=== PATIENT | male | born 1955 | race African-American/Black ===

== ENCOUNTER 2017-10-12 09:20 | Emergency (ER) | payer OTHER ==
[2017-10-12] MEDS: ALBUTEROL SULFATE 2.5 MG/3 ML NEBU. CONT NEB (09:46)
[2017-10-12] MEDS: IPRATRPIUM/ALBUTEROL 0.5/2.5MG 3 ML NEBU. NEB (09:46)
[2017-10-12 09:50] LABS: ADD MAN DIFF? NO
[2017-10-12] MEDS: methylPREDNISolone SOD SUCC PF 125 MG/2 ML VIAL. IV (09:50)
[2017-10-12 09:56] LABS: BASO # 0.1 x10^3/uL (0.0-0.2); BASO % 1 % (0-3); EOS # 0.3 x10^3/uL (0.0-0.7); EOS % 6 % (0-3); HEMATOCRIT 37.4 % (39.0-53.0); HEMOGLOBIN 12.5 g/dL (13.0-17.5); LYMPH # 0.8 x10^3/uL (1.0-4.8); LYMPH % 14 % (24-48); MEAN CORPUSCULAR HEMOGLOBIN 31 pg (25-35); MEAN CORPUSCULAR HGB CONC 33 g/dL (31-37); MEAN CORPUSCULAR VOLUME 93 fL (79-100); MONO # 0.7 x10^3/uL (0.0-1.1); MONO % 13 % (0-9); NEUT # 3.5 x10^3uL (1.8-7.7); NEUT % 66 % (31-73); PLATELET COUNT 133 x10^3/uL (140-400); RED BLOOD COUNT 4.02 x10^6/uL (4.30-5.70); RED CELL DISTRIBUTION WIDTH 14.9 % (11.5-14.5); WHITE BLOOD COUNT 5.4 x10^3/uL (4.0-11.0)
[2017-10-12 10:03] LABS: ANION GAP 7 (6-14); BLOOD UREA NITROGEN 19 mg/dL (8-26); BUN/CREATININE RATIO 16 (6-20); CALCIUM 9.4 mg/dL (8.5-10.1); CARBON DIOXIDE 27 mmol/L (21-32); CHLORIDE 106 mmol/L (98-107); CREATININE 1.2 mg/dL (0.7-1.3); GLUCOSE 144 mg/dL (70-99); POTASSIUM 3.9 mmol/L (3.5-5.1); SODIUM 140 mmol/L (136-145)
[2017-10-12 10:06] LABS: PROTHROMBIN TIME PATIENT 13.1 SEC (11.7-14.0)
[2017-10-12 10:09] LABS: ALBUMIN/GLOBULIN RATIO 1.2 (1.0-1.7); ALK PHOS 76 U/L (46-116); ALT (SGPT) 27 U/L (16-63); AST (SGOT) 24 U/L (15-37); MAGNESIUM 1.8 mg/dL (1.8-2.4); TOTAL BILIRUBIN 0.6 mg/dL (0.2-1.0); TOTAL PROTEIN 7.4 g/dL (6.4-8.2)
[2017-10-12 10:10] LABS: TROPONINI < 0.017 ng/mL (0.000-0.055)
[2017-10-12 10:18] LABS: NT-PRO BNP 520 pg/mL (0-124); THYROID STIM HORMONE (TSH) 1.293 uIU/mL (0.358-3.74)
[2017-10-12 10:18] LABS: CKMB INDEX 1.1 % (0-4); CREATINE KINASE 285 U/L (39-308)
== END 2017-10-12 11:28 | disposition home or self-care (01) ==
LOC: ER 09:20
DX: J44.1 Chronic obstructive pulmonary disease with (acute) exacerbation (principal); I48.91 Unspecified atrial fibrillation; I11.0 Hypertensive heart disease with heart failure; I50.9 Heart failure, unspecified; E10.40 Type 1 diabetes mellitus with diabetic neuropathy, unspecified; F12.10 Cannabis abuse, uncomplicated; Z85.528 Personal history of other malignant neoplasm of kidney; Z95.0 Presence of cardiac pacemaker; Z95.5 Presence of coronary angioplasty implant and graft; Z88.8 Allergy status to other drugs, medicaments and biological substances
CPT/HCPCS: 36415; 71045; 80053; 82553; 83735; 83880; 84443; 84484; 85025; 85610; 93005; 94644; 96374; 99285-25; J2930; J7613; J7620

== ENCOUNTER 2017-10-13 22:29 | Emergency (ER) | payer OTHER ==
[2017-10-13] MEDS: cefTRIAXone IM 1 GM VIAL IM (23:45)
== END 2017-10-14 | disposition home or self-care (01) ==
LOC: ER 10-14
DX: J02.9 Acute pharyngitis, unspecified (principal); I48.91 Unspecified atrial fibrillation; I10 Essential (primary) hypertension; J44.1 Chronic obstructive pulmonary disease with (acute) exacerbation; E10.40 Type 1 diabetes mellitus with diabetic neuropathy, unspecified; F12.10 Cannabis abuse, uncomplicated; Z95.5 Presence of coronary angioplasty implant and graft; Z95.0 Presence of cardiac pacemaker; Z88.8 Allergy status to other drugs, medicaments and biological substances
CPT/HCPCS: 96372; 99283; J0696

== ENCOUNTER → 2017-10-25 | Outpatient (CLI) | payer OTHER ==
[2017-10-25 15:22] LABS: ADD MAN DIFF? NO
[2017-10-25 15:29] LABS: BASO % 0 % (0-3); EOS % 0 % (0-3); HEMATOCRIT 39.2 % (39.0-53.0); LYMPH # 0.8 x10^3/uL (1.0-4.8); LYMPH % 6 % (24-48); MEAN CORPUSCULAR HEMOGLOBIN 31 pg (25-35); MEAN CORPUSCULAR HGB CONC 33 g/dL (31-37); MEAN CORPUSCULAR VOLUME 93 fL (79-100); MONO # 0.6 x10^3/uL (0.0-1.1); MONO % 5 % (0-9); NEUT # 12.4 x10^3uL (1.8-7.7); NEUT % 89 % (31-73); PLATELET COUNT 140 x10^3/uL (140-400); RED BLOOD COUNT 4.22 x10^6/uL (4.30-5.70); RED CELL DISTRIBUTION WIDTH 15.1 % (11.5-14.5); WHITE BLOOD COUNT 13.8 x10^3/uL (4.0-11.0)
[2017-10-25 15:34] LABS: BARBITURATES NEG (NEG); BENZODIAZEPINES NEG (NEG); CANNABINOIDS POS (NEG); COCAINE NEG (NEG); METHADONE NEG (NEG); OPIATES POS (NEG); PHENCYCLIDINE NEG (NEG)
[2017-10-25 15:36] LABS: AMPHETAMINE/METHAMPHETAMINE NEG (NEG); ETHANOL, URINE NEG (NEG)
[2017-10-25 15:48] LABS: ALBUMIN 3.7 g/dL (3.4-5.0); ALBUMIN/GLOBULIN RATIO 1.2 (1.0-1.7); ALK PHOS 63 U/L (46-116); ALT (SGPT) 43 U/L (16-63); ANION GAP 11 (6-14); AST (SGOT) 21 U/L (15-37); BLOOD UREA NITROGEN 34 mg/dL (8-26); BUN/CREATININE RATIO 24 (6-20); CARBON DIOXIDE 22 mmol/L (21-32); CHLORIDE 104 mmol/L (98-107); CREATININE 1.4 mg/dL (0.7-1.3); GFR 61.9; GLUCOSE 238 mg/dL (70-99); POTASSIUM 4.5 mmol/L (3.5-5.1); SODIUM 137 mmol/L (136-145); TOTAL BILIRUBIN 0.5 mg/dL (0.2-1.0); TOTAL PROTEIN 6.8 g/dL (6.4-8.2)
[2017-10-25 15:58] LABS: THYROID STIM HORMONE (TSH) 0.312 uIU/mL (0.358-3.74)
[2017-10-25 17:36] LABS: VITAMIN-B12 665 pg/mL (247-911)
== END | disposition home or self-care (01) ==
LOC: LAB 14:29
DX: R56.9 Unspecified convulsions (principal)
CPT/HCPCS: 36415; 80053; 80307; 82607; 84443; 85025

== ENCOUNTER → 2017-11-01 | Outpatient (CLI) | payer OTHER | END | disposition home or self-care (01) | LOC: CT 09:51 | DX: S06.0X9D Concussion with loss of consciousness of unspecified duration, subsequent encounter (principal); G31.9 Degenerative disease of nervous system, unspecified; X58.XXXD Exposure to other specified factors, subsequent encounter | CPT/HCPCS: 70450 ==

== ENCOUNTER → 2017-11-01 | Outpatient (CLI) | payer MEDICAID ==
[2017-11-01 09:02] LABS: ADD MAN DIFF? NO
[2017-11-01 09:12] LABS: BASO % 1 % (0-3); EOS # 0.2 x10^3/uL (0.0-0.7); EOS % 3 % (0-3); HEMATOCRIT 38.4 % (39.0-53.0); HEMOGLOBIN 12.9 g/dL (13.0-17.5); LYMPH # 1.2 x10^3/uL (1.0-4.8); LYMPH % 21 % (24-48); MEAN CORPUSCULAR HEMOGLOBIN 31 pg (25-35); MEAN CORPUSCULAR HGB CONC 34 g/dL (31-37); MEAN CORPUSCULAR VOLUME 93 fL (79-100); MONO # 0.6 x10^3/uL (0.0-1.1); MONO % 10 % (0-9); NEUT # 3.7 x10^3uL (1.8-7.7); NEUT % 66 % (31-73); PLATELET COUNT 101 x10^3/uL (140-400); RED BLOOD COUNT 4.14 x10^6/uL (4.30-5.70); RED CELL DISTRIBUTION WIDTH 15.1 % (11.5-14.5); WHITE BLOOD COUNT 5.7 x10^3/uL (4.0-11.0)
[2017-11-01 09:24] LABS: ALBUMIN 3.5 g/dL (3.4-5.0); ALBUMIN/GLOBULIN RATIO 1.1 (1.0-1.7); ALK PHOS 62 U/L (46-116); ALT (SGPT) 52 U/L (16-63); ANION GAP 7 (6-14); AST (SGOT) 33 U/L (15-37); BLOOD UREA NITROGEN 22 mg/dL (8-26); BUN/CREATININE RATIO 18 (6-20); CARBON DIOXIDE 27 mmol/L (21-32); CHLORIDE 102 mmol/L (98-107); CHOLESTEROL 141 mg/dL (0-200); CHOLESTEROL/HDL RATIO 1.6; CREATININE 1.2 mg/dL (0.7-1.3); GLUCOSE 234 mg/dL (70-99); HDLC 89 mg/dL (40-60); LDLC 38 mg/dL (0-100); NON-HDL CHOLESTEROL 52 mg/dL (0-129); SODIUM 136 mmol/L (136-145); TOTAL BILIRUBIN 0.7 mg/dL (0.2-1.0); TOTAL PROTEIN 6.8 g/dL (6.4-8.2); TRIGLYCERIDES 71 mg/dL (0-150); VLDLC 14 mg/dL (0-40)
[2017-11-01 09:41] LABS: FREE T4 1.08 ng/dL (0.76-1.46)
[2017-11-01 09:41] LABS: THYROID STIM HORMONE (TSH) 2.414 uIU/mL (0.358-3.74)
[2017-11-01 09:53] LABS: BILIRUBIN,URINE NEGATIVE (NEG); CLARITY,URINE CLEAR; COLOR,URINE YELLOW; GLUCOSE,URINE 100 mg/dL (NEG); NITRITE,URINE NEGATIVE (NEG); PROTEIN,URINE NEGATIVE (NEG-TRACE)
[2017-11-01 10:02] LABS: PROSTATE SPECIFIC ANTIGEN 3.31 ng/mL (0.00-4.00)
[2017-11-01 10:21] LABS: BACTERIA,URINE 0 /HPF (0-FEW); SQUAMOUS EPITHELIAL CELL,UR OCC /LPF; WBC,URINE OCC /HPF (0-4)
[2017-11-03 10:30] LABS: CREAT RD UR 166.8 mg/dL (Not Estab.); MICRO CREAT RATIO 17.1 mg/g creat (0.0-30.0); MICROALB RD UR 28.5 ug/mL (Not Estab.)
== END | disposition home or self-care (01) ==
LOC: RAD 08:33
DX: Z12.5 Encounter for screening for malignant neoplasm of prostate (principal); J18.9 Pneumonia, unspecified organism; I51.7 Cardiomegaly; I10 Essential (primary) hypertension; E11.9 Type 2 diabetes mellitus without complications
CPT/HCPCS: 71046; 80053; 80061; 81001; 83036; 84439; 84443; 85025; G0103

== ENCOUNTER → 2018-01-23 | Outpatient (CLI) | payer OTHER ==
[2017-10-13 23:00] VITALS: BP 160/100
[~2018-01-23] MED LIST: AMLO5TAB4 PO; ASPI-630 PO; AZIT250T6 PO; BUDE0.253 NEB; BUME1TAB PO; CANA100T PO; CARV25TA PO; CEPH-264 PO; CRESTOR40 MG PO; DABI150C PO; DOCU-109 PO; DOFE250C PO; EZET10TA18 PO; FLUT1DIS3 IH; GLIM4TAB2 PO; HYDR-971 PO; INSU100I13 SQ; INSU100I17 SQ; IPRA0.2S5 NEB; LEVO750T31 PO; LISI-334 PO; METF500T16 PO; METH4TAB2 PO; NITR0.4T22 SL; OMEP20CA9 PO; PRED20TA PO; PRED50TA PO; PROAIR HFA8.5 GM IH; SILD50TA PO; VENTOLIN HFA18 GM INH
--- NOTE | 2018-01-27 18:31 | EEG ---
DATE OF SERVICE: 01/23/2018 ELECTROENCEPHALOGRAM NUMBER: [id number] OBJECTIVE: This is a 63-year-old male patient with history of seizure. EEG was requested to evaluate seizure activity. This is a long-term video EEG monitoring with total video monitoring and EEG recording time of 24 hours and 11 minutes from 01/23/2018 to 01/24/2018. METHODS: Twenty electrodes were applied according to the international 10-20 electrode placement system. EKG monitoring, hyperventilation, intermittent photic stimulation, monopolar and bipolar montages are routinely utilized. The record was obtained on a digital system with video monitoring. FINDINGS: 1. Background: The patient was recorded in the awake, drowsy and sleep states. The overall background amplitude is 10-30 microvolts. A posterior dominant rhythm of 8-10 Hz is observed. 2. Abnormalities: No specific epileptiform discharge or electrographic seizure is seen. No focal or diffuse slowing. 3. Activation: Hyperventilation was performed with good efforts and normal response. Intermittent photic stimulation was performed with photic driving. No specific epileptiform discharge or electrographic seizure induced by hyperventilation or intermittent photic stimulation. IMPRESSION: This is a long-term video electroencephalogram monitoring with total video monitoring and electroencephalogram recording time of 24 hours and 11 minutes from 01/23/2018 to 01/24/2018. This long-term video electroencephalogram monitoring is a normal study for the awake, drowsy and sleep states. No focal, lateralizing, specific epileptiform discharge or electrographic seizure is seen. No clinical seizure as well. KALYN CARVAJAL MD DR: LANCE/filomena JOB#: [id number] / [id number] [place]
== END | disposition home or self-care (01) ==
LOC: SLPLAB 05:55
PROVIDERS: ATTEND Psychiatry & Neurology Neurology
DX: R56.9 Unspecified convulsions (principal); I25.2 Old myocardial infarction; I11.0 Hypertensive heart disease with heart failure; I50.9 Heart failure, unspecified; E11.9 Type 2 diabetes mellitus without complications; E78.00 Pure hypercholesterolemia, unspecified; E78.5 Hyperlipidemia, unspecified; J44.9 Chronic obstructive pulmonary disease, unspecified; I48.2 Chronic atrial fibrillation; I25.10 Atherosclerotic heart disease of native coronary artery without angina pectoris; Z86.73 Personal history of transient ischemic attack (TIA), and cerebral infarction without residual deficits; Z85.528 Personal history of other malignant neoplasm of kidney; Z87.891 Personal history of nicotine dependence; Z95.0 Presence of cardiac pacemaker; Z79.4 Long term (current) use of insulin; Z82.49 Family history of ischemic heart disease and other diseases of the circulatory system; Z83.3 Family history of diabetes mellitus
CPT/HCPCS: 95951